=== PATIENT | female | born 1995 | race Two or more races ===

== ENCOUNTER 2018-06-02 12:46 | Emergency (ER) | payer MEDICAID ==
--- NOTE | 2018-06-02 12:58 | ER Report ---
History and Physical Time Seen By MD: 12:58 HPI/ROS CHIEF COMPLAINT: Vaginal spotting HISTORY OF PRESENT ILLNESS: This is a 23-year-old female presents to the emergency department for vaginal spotting. Patient is about 1112 weeks , has recently moved to [place], has been here partly one week, moved from [place]. She states that her last week or so she's had increased low back pain, has been trying some stretches at home to see if this helps that has not, over the last couple of days she's had very scant, pinkish spotting. No bloody discharge. No vaginal odor or any other discharge. Patient is concerned as she has had a miscarriage in the past. She also has a history of hyperemesis gravidarum. However she declines nausea medicine at this time. Patient denies dysuria. No other complaints. No fevers or chills. No chest pain or shortness of breath. REVIEW OF SYSTEMS: Constitutional: No fever, no chills. Eyes: No discharge. ENT: No sore throat. Cardiovascular: No chest pain, no palpitations. Respiratory: No cough, no shortness of breath. Gastrointestinal: No abdominal pain, no vomiting. Genitourinary: As above. Musculoskeletal: No back pain. Skin: No rashes. Neurological: No headache. WARP STARTER: As above. Allergies: Coded Allergies: morphine (Verified Allergy, Intermediate, HIVES, 06/02/18) Past Medical/Surgical History Patient is a . No significant past medical history other than miscarriage. Reviewed Nurses Notes: Yes Constitutional Vital Sign - Last 24 Hours 06/02/18 13:01 Temp 97.9 Pulse 107 Resp 16 B/P (MAP) 127/75 Pulse Ox 95 O2 Delivery Room Air Physical Exam General Appearance: The patient is alert, has no immediate need for airway protection and no signs of toxicity. Eyes: Pupils equal and round no pallor or injection. ENT, Mouth: Mucous membranes are moist. Respiratory: There are no retractions, lungs are clear to auscultation. Cardiovascular: Regular rate and rhythm. Gastrointestinal: Abdomen is soft and non tender, no masses, bowel sounds normal. Neurological: Alert and oriented 4. Moving all extremities. Following all c ommands. No focal neuro deficits. Skin: Warm and dry, no rashes. Musculoskeletal: Neck is supple non tender. Extremities are nontender, nonswollen and have full range of motion. DIFFERENTIAL DIAGNOSIS: After history and physical exam differential diagnosis was considered for abdominal pain in a female including but not limited to ovarian cyst, pelvic inflammatory disease, ovarian torsion, urinary tract infection, and appendicitis. vaginal bleeding including but not limited to ectopic , menses, miscarriage, and dysfunctional uterine bleeding. Medical Decision Making Data Points Result Diagram: 06/02/18 1320 06/02/18 1320 Laboratory Hematology Test 06/02/18 13:20 06/02/18 14:30 Red Blood Count 3.95 M/uL (4.17-5.56) Mean Corpuscular Volume 93.1 fL (80.0-96.0) Mean Corpuscular Hemoglobin 33.0 pg (26.0-33.0) Mean Corpuscular Hemoglobin Concent 35.4 g/dL (32.0-36.0) Red Cell Distribution Width 13.2 % (11.5-14.5) Mean Platelet Volume 8.3 fL (7.2-11.1) Neutrophils (%) (Auto) 72.9 % (39.4-72.5) Lymphocytes (%) (Auto) 19.9 % (17.6-49.6) Monocytes (%) (Auto) 6.5 % (4.1-12.4) Eosinophils (%) (Auto) 0.3 % (0.4-6.7) Basophils (%) (Auto) 0.4 % (0.3-1.4) Nucleated RBC Relative Count (auto) 0.0 /100WBC Neutrophils # (Auto) 5.1 K/uL (2.0-7.4) Lymphocytes # (Auto) 1.4 K/uL (1.3-3.6) Monocytes # (Auto) 0.5 K/uL (0.3-1.0) Eosinophils # (Auto) 0.0 K/uL (0.0-0.5) Basophils # (Auto) 0.0 K/uL (0.0-0.1) Nucleated RBC Absolute Count (auto) 0.00 K/uL Sodium Level 137 mmol/L (137-145) Potassium Level 3.2 mmol/L (3.5-5.0) Chloride Level 102 mmol/L (98-107) Carbon Dioxide Level 23 mmol/L (22-31) Blood Urea Nitrogen 3 mg/dl (7-18) Creatinine 0.40 mg/dl (0.52-1.04) Glomerular Filtration Rate Calc > 60.0 Random Glucose 85 mg/dl (75-110) Calcium Level 9.1 mg/dl (8.4-10.2) Total Bilirubin 0.4 mg/dl (0.2-1.3) Aspartate Amino Transf (AST/SGOT) 14 U/L (0-35) Alanine Aminotransferase (ALT/SGPT) 20 U/L (0-56) Alkaline Phosphatase 71 U/L (0-126) Total Protein 7.4 g/dl (6.3-8.2) Albumin 4.0 g/dl (3.5-5.0) Human Chorionic Gonadotropin, Quant 16691 mIU/ml Urine Color Straw Urine Clarity Clear Urine pH 7.0 pH (4.8-9.5) Urine Specific [place] 1.003 Urine Protein Negative mg/dL (NEGATIVE) Urine Glucose (UA) Negative mg/dL (NEGATIVE) Urine Ketones Negative mg/dL (NEGATIVE) Urine Blood Negative (NEGATIVE) Urine Nitrite Negative (NEGATIVE) Urine Bilirubin Negative (NEGATIVE) Urine Urobilinogen Negative mg/dL (0.2-1.9) Urine Leukocyte Esterase Negative (NEGATIVE) Urine RBC <1 /HPF (0-2/HPF) Urine WBC <1 /HPF (0-5/HPF) Urine Squamous Epithelial Cells Few /LPF (</=FEW) Urine Bacteria Negative /HPF (NONE-FEW) Urine Mucus None /HPF (NONE-FEW) Chemistry Test 06/02/18 13:20 06/02/18 14:30 White Blood Count 7.1 k/uL (4.5-11.0) Red Blood Count 3.95 M/uL (4.17-5.56) Hemoglobin 13.0 g/dL (12.0-16.0) Hematocrit 36.8 % (34.0-47.0) Mean Corpuscular Volume 93.1 fL (80.0-96.0) Mean Corpuscular Hemoglobin 33.0 pg (26.0-33.0) Mean Corpuscular Hemoglobin Concent 35.4 g/dL (32.0-36.0) Red Cell Distribution Width 13.2 % (11.5-14.5) Platelet Count 288 K/uL (150-450) Mean Platelet Volume 8.3 fL (7.2-11.1) Neutrophils (%) (Auto) 72.9 % (39.4-72.5) Lymphocytes (%) (Auto) 19.9 % (17.6-49.6) Monocytes (%) (Auto) 6.5 % (4.1-12.4) Eosinophils (%) (Auto) 0.3 % (0.4-6.7) Basophils (%) (Auto) 0.4 % (0.3-1.4) Nucleated RBC Relative Count (auto) 0.0 /100WBC Neutrophils # (Auto) 5.1 K/uL (2.0-7.4) Lymphocytes # (Auto) 1.4 K/uL (1.3-3.6) Monocytes # (Auto) 0.5 K/uL (0.3-1.0) Eosinophils # (Auto) 0.0 K/uL (0.0-0.5) Basophils # (Auto) 0.0 K/uL (0.0-0.1) Nucleated RBC Absolute Count (auto) 0.00 K/uL Glomerular Filtration Rate Calc > 60.0 Calcium Level 9.1 mg/dl (8.4-10.2) Total Bilirubin 0.4 mg/dl (0.2-1.3) Aspartate Amino Transf (AST/SGOT) 14 U/L (0-35) Alanine Aminotransferase (ALT/SGPT) 20 U/L (0-56) Alkaline Phosphatase 71 U/L (0-126) Total Protein 7.4 g/dl (6.3-8.2) Albumin 4.0 g/dl (3.5-5.0) Human Chorionic Gonadotropin, Quant 39781 mIU/ml Urine Color Straw Urine Clarity Clear Urine pH 7.0 pH (4.8-9.5) Urine Specific [place] 1.003 Urine Protein Negative mg/dL (NEGATIVE) Urine Glucose (UA) Negative mg/dL (NEGATIVE) Urine Ketones Negative mg/dL (NEGATIVE) Urine Blood Negative (NEGATIVE) Urine Nitrite Negative (NEGATIVE) Urine Bilirubin Negative (NEGATIVE) Urine Urobilinogen Negative mg/dL (0.2-1.9) Urine Leukocyte Esterase Negative (NEGATIVE) Urine RBC <1 /HPF (0-2/HPF) Urine WBC <1 /HPF (0-5/HPF) Urine Squamous Epithelial Cells Few /LPF (</=FEW) Urine Bacteria Negative /HPF (NONE-FEW) Urine Mucus None /HPF (NONE-FEW) Urinalysis Test 06/02/18 14:30 Urine Color Straw Urine Clarity Clear Urine pH 7.0 pH (4.8-9.5) Urine Specific [place] 1.003 Urine Protein Negative mg/dL (NEGATIVE) Urine Glucose (UA) Negative mg/dL (NEGATIVE) Urine Ketones Negative mg/dL (NEGATIVE) Urine Blood Negative (NEGATIVE) Urine Nitrite Negative (NEGATIVE) Urine Bilirubin Negative (NEGATIVE) Urine Urobilinogen Negative mg/dL (0.2-1.9) Urine Leukocyte Esterase Negative (NEGATIVE) Urine RBC <1 /HPF (0-2/HPF) Urine WBC <1 /HPF (0-5/HPF) Urine Squamous Epithelial Cells Few /LPF (</=FEW) Urine Bacteria Negative /HPF (NONE-FEW) Urine Mucus None /HPF (NONE-FEW) EKG/Imaging Imaging Location: [facility] Patient: Marisol Lockhart : 1995 Visit/Account:[id number] [facility]: 06[facility]/2018 OB Ultrasound < 14 weeks Additional Pertinent history: Vaginal spotting and back pain. History of miscarriage COMPARISON STUDIES: None available FINDINGS: Gestational sac: intrauterine and unremarkable Yolk sac: Not visualized cardiac activity: 136 bpm Gestational Parameters: BPD: 2.41 cm 14 weeks and 1 day HC: 9.48 cm 14 weeks and 3 days AC: 7.75 cm 14 weeks and 2 days FL: 1.28 cm 13 weeks and 6 days Average ultrasound age (AUA): 14 weeks and 2 days Estimated gestational age based on LMP datin weeks and 6 days AMBAR: 11/29/2018 based on today's ultrasound age Uterus: gravid, otherwise negative. No visualized subchorionic hemorrhage. Cervix is long and closed. Maternal ovaries: Ovaries are not visualized Adnexa: No adnexal mass lesion or focal abnormality. Free pelvic fluid: none IMPRESSION: 1. No acute findings. 2. Single live intrauterine gestation with estimated gestational age of 14 weeks and 2 days. 3. Ovaries are nonvisualized. No gross adnexal mass. Report Dictated By: Hadley Ruiz MD at 06/02/2018 2:12 PM Report E-Signed By: Hadley Ruiz MD at 06/02/2018 2:15 PM WSN:[email or web address] ED Course/Re-evaluation Clinical Indication for ER IV: Hydration, IV Access ED Course The patient was admitted to room. A history and physical were obtained. Differential diagnoses were considered. An IV was started. A 1 L normal saline and also was given. A CBC, CMP were obtained. Lab studies unremarkable. HCG Quant 41,906, negative urine. Transvaginal ultrasound showing Single live intrauterine gestation with estimated gestational age of 14 weeks and 2 days. I did review these results with the patient, she is very pleased. He did tell her that the back pain that she is experiencing could be related to the however it could also be related to the recent move from [facility], riding in cars. Patient exposed understanding. She had no further questions or concerns at this time and was discharged home. Patient was also given a list of local providers and WARP STARTER's. Patient was in and instructed to return to the ER for any other concerns worsening symptoms. Decision to Disposition Date: Jun 02, 2018 Decision to Disposition Time: 15:19 Depart Departure Latest Vital Signs Vital Signs Date Time Temp Pulse Resp B/P (MAP) Pulse Ox O2 Delivery O2 Flow Rate FiO2 06/02/18 13:01 97.9 107 16 127/75 95 Room Air Impression: Primary Impression: Intrauterine Condition: Improved Disposition: HOME OR SELF-CARE Referrals: HERBERT HARVEY DO POCKET SECRETARY ASSEMBLER 1 Week Patient Instructions: at 11 to 14 Weeks (ED) Additional Instructions: The ultra sound is showing an intrauterine . Blood work looks good. Be sure to follow up with and establish an WARP STARTER within one week. Drink plenty of fluids. Get plenty of rest. Try frequent sips of water rather than large amounts of water at one time. Return to the ED for any other concerns or worsening symptoms. ANTOINE ROCHA FURNACE UTILITY OPERATOR-BC Jun 02, 2018 12:58
[2018-06-02 13:01] VITALS: BP 127/75
[2018-06-02] MEDS ORDERED: NS(*) 0.9% 1000 ML BAG 1,000 ML IV ONE (13:03)
[2018-06-02 13:28] LABS: PLATELET COUNT, AUTOMATED 288 K/uL (150-450)
--- NOTE | 2018-06-02 14:21 | RADIOLOGY IMAGING REPORT ---
FACILITY: [facility] - [place] PATIENT NAME: Marisol Lockhart : 1995 MR: [id number] V: [id number] EXAM DATE: ORDERING PHYSICIAN: ANTOINE ROCHA TECHNOLOGIST: Location: [facility] - [place] Patient: Marisol Lockhart : 1995 Visit/Account:[id number] Date of Sevice: 06/02/2018 OB Ultrasound < 14 weeks Additional Pertinent history: Vaginal spotting and back pain. History of miscarriage COMPARISON STUDIES: None available FINDINGS: Gestational sac: intrauterine and unremarkable Yolk sac: Not visualized cardiac activity: 136 bpm Gestational Parameters: BPD: 2.41 cm 14 weeks and 1 day HC: 9.48 cm 14 weeks and 3 days AC: 7.75 cm 14 weeks and 2 days FL: 1.28 cm 13 weeks and 6 days Average ultrasound age (AUA): 14 weeks and 2 days Estimated gestational age based on LMP datin weeks and 6 days AMBAR: 11/29/2018 based on today's ultrasound age Uterus: gravid, otherwise negative. No visualized subchorionic hemorrhage. Cervix is long and close d. Maternal ovaries: Ovaries are not visualized Adnexa: No adnexal mass lesion or focal abnormality. Free pelvic fluid: none IMPRESSION: 1. No acute findings. 2. Single live intrauterine gestation with estimated gestational age of 14 weeks and 2 days. 3. Ovaries are nonvisualized. No gross adnexal mass. Report Dictated By: Hadley Ruiz MD at 06/02/2018 2:12 PM Report E-Signed By: Hadley Ruiz MD at 06/02/2018 2:15 PM WSN:[email or web address]
== END 2018-06-02 15:30 | disposition home or self-care (01) ==
LOC: ER 12:54
DX: O20.9 Hemorrhage in early pregnancy, unspecified (principal); Z3A.14 14 weeks gestation of pregnancy
CPT/HCPCS: 76817; 81001; 84702; 85025; 96360; 99284; J7030; 82040; 82247; 82310; 82374; 82435; 82565; 82947; 84075; 84132; 84155; 84295; 84450; 84460; 84520

== ENCOUNTER 2018-06-24 21:02 | Emergency (ER) | payer MEDICAID ==
--- NOTE | 2018-06-24 21:17 | ER Report ---
History and Physical Time Seen By MD: 21:17 Hx. of Stated Complaint: PT HAS HYPER EMESIS WITH AND HAS BEEN THOWING UP FOR 4 DAYS NOW. HPI/ROS CHIEF COMPLAINT: Vomiting, 16 weeks HISTORY OF PRESENT ILLNESS: 23-year-old female with vomiting for 4 days, unable to keep anything down presents to the ER. She is 16 weeks by dates. Patient has not had any OB care. She was seen here several weeks ago and had an ultrasound at approximately 12 weeks, showing an IUP. She notes no vaginal bleeding, spotting or discharge. She notes no urinary symptoms. She's had no URI cough sore throat fever or chills. He denies exposure to ill contacts. She states that she did have hyperemesis during the early part of her . She is reluctant to take any antibiotic medication. REVIEW OF SYSTEMS: Respiratory: No cough, no dyspnea. Cardiovascular: No chest pain, no palpitations. Gastrointestinal: As above Musculoskeletal: No back pain. Allergies: Coded Allergies: morphine (Verified Allergy, Intermediate, HIVES, 06/24/18) Home Meds No Active Prescriptions or Reported Meds Reviewed Nurses Notes: Yes Old Medical Records Reviewed: Yes Hx Substance Use Disorder: No Hx Alcohol Use: No Constitutional Vital Sign - Last 24 Hours 06/24/18 06/24/18 06/24/18 06/24/18 21:11 21:11 21:17 21:32 Temp 98.6 Pulse 86 94 85 Resp 14 B/P (MAP) 123/66 123/66 (85) Pulse Ox 96 97 98 O2 Delivery Room Air 06/24/18 06/24/18 06/24/18 06/24/18 21:47 22:02 22:07 22:22 Pulse 82 93 89 88 Pulse Ox 98 92 100 95 06/24/18 06/24/18 06/24/18 06/24/18 22:27 22:42 22:49 22:57 Pulse 85 84 82 B/P (MAP) 106/69 (81) Pulse Ox 100 97 100 Intake and Output 06/24/18 06/24/18 06/25/18 15:00 23:00 07:00 Intake Total 2000 ml Balance 2000 ml Physical Exam General Appearance: The patient is alert, has no immediate need for airway p rotection and no current signs of toxicity. Vital signs stable, afebrile, pulse ox normal HEENT: Pupils equal and round no injection. Oropharynx with dry mucous membranes, no erythema Respiratory: Chest is non tender, lungs are clear to auscultation. Cardiac: regular rate and rhythm Gastrointestinal: Abdomen is gravid, consistent with dates, soft and non tender, no masses, bowel sounds normal. Musculoskeletal: Neck: Neck is supple and non tender. No lymphadenopathy Extremities have full range of motion and are non tender. Skin: No rashes or lesions. DIFFERENTIAL DIAGNOSIS: After history and physical exam differential diagnosis was considered for abdominal pain including but not limited to appendicitis, cholecystitis, gastritis and urinary tract infection. Hyperemesis gravidarum, Medical Decision Making Data Points Result Diagram: 06/24/18212906/24/182129 Laboratory Hematology Test 06/24/18 21:08 06/24/18 21:30 Urine Color Yellow Urine Clarity Slightly-cloudy Urine pH 5.0 pH (4.8-9.5) Urine Specific [place] 1.020 Urine Protein Negative mg/dL (NEGATIVE) Urine Glucose (UA) Negative mg/dL (NEGATIVE) Urine Ketones Trace mg/dL (NEGATIVE) Urine Blood Negative (NEGATIVE) Urine Nitrite Negative (NEGATIVE) Urine Bilirubin Negative (NEGATIVE) Urine Urobilinogen 4.0 mg/dL (0.2-1.9) Urine Leukocyte Esterase Negative (NEGATIVE) Urine RBC <1 /HPF (0-2/HPF) Urine WBC 3 /HPF (0-5/HPF) Urine Squamous Epithelial Cells Many /LPF (</=FEW) Urine Transitional Epithelial Cells Few /LPF (NONE-FEW) Urine Bacteria Moderate /HPF (NONE-FEW) Urine Mucus Few /HPF (NONE-FEW) Red Blood Count 4.17 M/uL (4.17-5.56) Mean Corpuscular Volume 93.1 fL (80.0-96.0) Mean Corpuscular Hemoglobin 32.6 pg (26.0-33.0) Mean Corpuscular Hemoglobin Concent 35.0 g/dL (32.0-36.0) Red Cell Distribution Width 13.4 % (11.5-14.5) Mean Platelet Volume 8.5 fL (7.2-11.1) Neutrophils (%) (Auto) 69.5 % (39.4-72.5) Lymphocytes (%) (Auto) 23.5 % (17.6-49.6) Monocytes (%) (Auto) 5.7 % (4.1-12.4) Eosinophils (%) (Auto) 0.9 % (0.4-6.7) Basophils (%) (Auto) 0.4 % (0.3-1.4) Nucleated RBC Relative Count (auto) 0.1 /100WBC Neutrophils # (Auto) 5.9 K/uL (2.0-7.4) Lymphocytes # (Auto) 2.0 K/uL (1.3-3.6) Monocytes # (Auto) 0.5 K/uL (0.3-1.0) Eosinophils # (Auto) 0.1 K/uL (0.0-0.5) Basophils # (Auto) 0.0 K/uL (0.0-0.1) Nucleated RBC Absolute Count (auto) 0.01 K/uL Sodium Level 136 mmol/L (137-145) Potassium Level 3.1 mmol/L (3.5-5.0) Chloride Level 100 mmol/L (98-107) Carbon Dioxide Level 26 mmol/L (22-31) Blood Urea Nitrogen 6 mg/dl (7-18) Creatinine 0.50 mg/dl (0.52-1.04) Glomerular Filtration Rate Calc > 60.0 Random Glucose 97 mg/dl (75-110) Calcium Level 9.3 mg/dl (8.4-10.2) Total Bilirubin 0.3 mg/dl (0.2-1.3) Aspartate Amino Transf (AST/SGOT) 13 U/L (0-35) Alanine Aminotransferase (ALT/SGPT) 18 U/L (0-56) Alkaline Phosphatase 82 U/L (0-126) Total Protein 7.6 g/dl (6.3-8.2) Albumin 4.1 g/dl (3.5-5.0) Human Chorionic Gonadotropin, Qual Positive (NEGATIVE) Chemistry Test 06/24/18 21:08 06/24/18 21:30 Urine Color Yellow Urine Clarity Slightly-cloudy Urine pH 5.0 pH (4.8-9.5) Urine Specific [place] 1.020 Urine Protein Negative mg/dL (NEGATIVE) Urine Glucose (UA) Negative mg/dL (NEGATIVE) Urine Ketones Trace mg/dL (NEGATIVE) Urine Blood Negative (NEGATIVE) Urine Nitrite Negative (NEGATIVE) Urine Bilirubin Negative (NEGATIVE) Urine Urobilinogen 4.0 mg/dL (0.2-1.9) Urine Leukocyte Esterase Negative (NEGATIVE) Urine RBC <1 /HPF (0-2/HPF) Urine WBC 3 /HPF (0-5/HPF) Urine Squamous Epithelial Cells Many /LPF (</=FEW) Urine Transitional Epithelial Cells Few /LPF (NONE-FEW) Urine Bacteria Moderate /HPF (NONE-FEW) Urine Mucus Few /HPF (NONE-FEW) White Blood Count 8.4 k/uL (4.5-11.0) Red Blood Count 4.17 M/uL (4.17-5.56) Hemoglobin 13.6 g/dL (12.0-16.0) Hematocrit 38.8 % (34.0-47.0) Mean Corpuscular Volume 93.1 fL (80.0-96.0) Mean Corpuscular Hemoglobin 32.6 pg (26.0-33.0) Mean Corpuscular Hemoglobin Concent 35.0 g/dL (32.0-36.0) Red Cell Distribution Width 13.4 % (11.5-14.5) Platelet Count 268 K/uL (150-450) Mean Platelet Volume 8.5 fL (7.2-11.1) Neutrophils (%) (Auto) 69.5 % (39.4-72.5) Lymphocytes (%) (Auto) 23.5 % (17.6-49.6) Monocytes (%) (Auto) 5.7 % (4.1-12.4) Eosinophils (%) (Auto) 0.9 % (0.4-6.7) Basophils (%) (Auto) 0.4 % (0.3-1.4) Nucleated RBC Relative Count (auto) 0.1 /100WBC Neutrophils # (Auto) 5.9 K/uL (2.0-7.4) Lymphocytes # (Auto) 2.0 K/uL (1.3-3.6) Monocytes # (Auto) 0.5 K/uL (0.3-1.0) Eosinophils # (Auto) 0.1 K/uL (0.0-0.5) Basophils # (Auto) 0.0 K/uL (0.0-0.1) Nucleated RBC Absolute Count (auto) 0.01 K/uL Glomerular Filtration Rate Calc > 60.0 Calcium Level 9.3 mg/dl (8.4-10.2) Total Bilirubin 0.3 mg/dl (0.2-1.3) Aspartate Amino Transf (AST/SGOT) 13 U/L (0-35) Alanine Aminotransferase (ALT/SGPT) 18 U/L (0-56) Alkaline Phosphatase 82 U/L (0-126) Total Protein 7.6 g/dl (6.3-8.2) Albumin 4.1 g/dl (3.5-5.0) Human Chorionic Gonadotropin, Qual Positive (NEGATIVE) Urinalysis Test 06/24/18 21:08 Urine Color Yellow Urine Clarity Slightly-cloudy Urine pH 5.0 pH (4.8-9.5) Urine Specific [place] 1.020 Urine Protein Negative mg/dL (NEGATIVE) Urine Glucose (UA) Negative mg/dL (NEGATIVE) Urine Ketones Trace mg/dL (NEGATIVE) Urine Blood Negative (NEGATIVE) Urine Nitrite Negative (NEGATIVE) Urine Bilirubin Negative (NEGATIVE) Urine Urobilinogen 4.0 mg/dL (0.2-1.9) Urine Leukocyte Esterase Negative (NEGATIVE) Urine RBC <1 /HPF (0-2/HPF) Urine WBC 3 /HPF (0-5/HPF) Urine Squamous Epithelial Cells Many /LPF (</=FEW) Urine Transitional Epithelial Cells Few /LPF (NONE-FEW) Urine Bacteria Moderate /HPF (NONE-FEW) Urine Mucus Few /HPF (NONE-FEW) EKG/Imaging Imaging Results: Ultrasound of the OB transvaginal ultrasound was obtained. The results of the study are OB LIMITED HISTORY: No care. History of vomiting and cramping. Previous miscarr iage. COMPARISON STUDIES: 06/02/2018. FINDINGS: Intrauterine gestations: One. presentation: Variable. heart rate: Regular at 155 bpm. Amniotic fluid: Normal. Placenta: Anterior without previa. Placental cord insertion is normal. Uterus: Gravid, otherwise normal. Maternal adnexa: Unremarkable. Cervix: Closed, measuring 4.2 cm. No funneling. Gestational Parameters: BPD: 3.6 cm 17 weeks/ 1 days HC: 13.6 cm 17 weeks/ 1 days AC: 11.3 cm 17 weeks/ 1 days FL: 2.4 cm 17 weeks/ 1 days Average ultrasound age (AUA): 17 weeks 1 days Estimated gestational age by LMP of 03/04/2018: 16 weeks 0 days, corresponding to AMBAR 12/09/2018. Estimated weight (EFW): 181 grams +/- 26 grams EFW: 97 th percentile based on LMP Anatomic Survey: Not performed due to gestational age. IMPRESSION: 1. Single live intrauterine gestation; estimated ultrasound age 17 weeks 1 days, corresponding to AMBAR 12/01/2018, 8 days ahead of the AMBAR based on LMP, and 2 days behind the AMBAR based on early OB ultrasound. 2. Anterior placenta without previa. No evidence for abruption. The study was read by the radiologist. I viewed the images myself on the PACS system. ED Course/Re-evaluation Clinical Indication for ER IV: Hydration, IV Access ED Course Patient was admitted to an examination room. H&P was done. The differential diagnosis was considered. He denies dysuria. She denies vaginal discharge or bleeding. Patient's treated with IV fluid hydration. She refuses antirheumatic medication. Her diagnostic studies are unremarkable. Patient able to tolerate by mouth fluids. She is discharged home. Patient's advised to follow-up with [facility] for appropriate care. Decision to Disposition Date: Jun 24, 2018 Decision to Disposition Time: 22:39 Depart Departure Latest Vital Signs Vital Signs Date Time Temp Pulse Resp B/P (MAP) Pulse Ox O2 Delivery O2 Flow Rate FiO2 06/24/18 22:57 82 100 06/24/18 22:49 106/69 (81) 06/24/18 21:11 98.6 14 Room Air Impression: Primary Impression: 17 weeks gestation of Additional Impression: Vomiting Condition: Improved Disposition: HOME OR SELF-CARE Referrals: HERBERT HARVEY No Active Prescriptions or Reported Meds Patient Instructions: (ED) Additional Instructions: Follow-up with [facility] next week Problem Qualifiers Additional Impression: Vomiting Vomiting type: unspecified Vomiting Intractability: unspecified Nausea presence: unspecified Qualified Codes: R11.10 - Vomiting, unspecified ALLISON STARKEY DO Jun 24, 2018 21:17
[2018-06-24] MEDS ORDERED: NS(*) 0.9% 1000 ML BAG 1,000 ML IV ONE (21:20)
[2018-06-24 21:42] LABS: PLATELET COUNT, AUTOMATED 268 K/uL (150-450)
[2018-06-24] MEDS ORDERED: LR(*) 1000 ML BAG 1,000 ML IV PRN (22:15)
[2018-06-24 22:49] VITALS: BP 106/69
--- NOTE | 2018-06-24 22:54 | RADIOLOGY IMAGING REPORT ---
FACILITY: [facility] - [place] PATIENT NAME: Marisol Lockhart : 1995 MR: [id number] V: [id number] EXAM DATE: ORDERING PHYSICIAN: ALLISON STARKEY TECHNOLOGIST: Location: [facility] - [place] Patient: Marisol Lockhart : 1995 Visit/Account:[id number] Date of Sevice: 06/24/2018 OB LIMITED HISTORY: No care. History of vomiting and cramping. Previous miscarriage. COMPARISON STUDIES: 06/02/2018. FINDINGS: Intrauterine gestations: One. presentation: Variable. heart rate: Regular at 155 bpm. Amniotic fluid: Normal. Placenta: Anterior without previa. Placental cord insertion is normal. Uterus: Gravid, otherwise normal. Maternal adnexa: Unremarkable. Cervix: Closed, measuring 4.2 cm. No funneling. Gestational Parameters: BPD: 3.6 cm 17 weeks/ 1 days HC: 13.6 cm 17 weeks/ 1 days AC: 11.3 cm 17 weeks/ 1 days FL: 2.4 cm 17 weeks/ 1 days Average ultrasound age (AUA): 17 weeks 1 days Estimated gestational age by LMP of 03/04/2018: 16 weeks 0 days, corresponding to AMBAR 12/09/2018. Estimated weight (EFW): 181 grams +/- 26 grams EFW: 97 th percentile based on LMP Anatomic Survey: Not performed due to gestational age. IMPRESSION: 1. Single live intrauterine gestation; estimated ultrasound age 17 weeks 1 days, corresponding to AMBAR 12/01/2018, 8 days ahead of the AMBAR based on LMP, and 2 days behind the AMBAR based on early OB ultraso und. 2. Anterior placenta without previa. No evidence for abruption. Report Dictated By: Leela Cross at 06/24/2018 10:40 PM Report E-Signed By: Leela Cross at 06/24/2018 10:50 PM WSN:[id number]
== END 2018-06-24 23:13 | disposition home or self-care (01) ==
LOC: ER 21:22
DX: O21.9 Vomiting of pregnancy, unspecified (principal); Z3A.17 17 weeks gestation of pregnancy
CPT/HCPCS: 76815; 81001; 84703; 85025; 96360; 99284; J7030; J7120; 82040; 82247; 82310; 82374; 82435; 82565; 82947; 84075; 84132; 84155; 84295; 84450; 84460; 84520

== ENCOUNTER 2018-09-04 11:40 | Emergency (ER) | payer OTHER, MEDICAID ==
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
[2018-09-04] MEDS ORDERED: PREN-127 PO (11:59)
[2018-09-04] MEDS ORDERED: ACETAMINOPHEN 325 MG TAB PO ONE (12:10)
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
[2018-09-04 12:56] VITALS: BP 109/69
== END 2018-09-04 13:00 | disposition home or self-care (01) ==
LOC: ER 11:51
DX: O26.892 Other specified pregnancy related conditions, second trimester (principal); Z3A.28 28 weeks gestation of pregnancy; M54.2 Cervicalgia; M54.5 Low back pain; V49.50XA Passenger injured in collision with unspecified motor vehicles in traffic accident, initial encounter
CPT/HCPCS: 72040; 81001; 99284

== ENCOUNTER → 2018-09-04 | Outpatient (CLI) | payer OTHER, MEDICAID ==
[~2018-09-04] MED LIST: PREN-127 PO
== END ==
LOC: AMB 11:24
PROVIDERS: ATTEND Nurse Practitioner
DX: M54.5 Low back pain (principal); M54.6 Pain in thoracic spine; V49.50XA Passenger injured in collision with unspecified motor vehicles in traffic accident, initial encounter; Y92.414 Local residential or business street as the place of occurrence of the external cause
CPT/HCPCS: A0425; A0429